=== PATIENT | female | born 1960 | race Caucasian/White ===

== ENCOUNTER 2019-10-31 08:57 | Observation (INO) ==
--- NOTE | 2019-10-21 13:57 | History & Physical Report ---
Date of Service October 21, 2019 Assessment & Plan (1) Primary osteoarthritis of right knee: Treatment options were discussed. She has failed conservative therapy as above. She would like to proceed with right total knee arthroplasty. Risks, benefits and alternatives to surgery including but not limited to infection, DVT, pain, stiffness, need for revision surgery, damage to blood vessels, damage to nerves, PE, , were discussed with the patient and they wish to proceed. Will plan on aspirin 81mg BID x 1 mo for DVT prophylaxis, will plan on HHPT post discharge from the hospital. All questions answered. COVID status is unknown, she will be tested preoperatively. History of Present Illness Chief Complaint: Right knee pain Primary Care Provider: NO PCP 59 year old female with no significant PMHx presents with long standing right knee pain. She has pain that is interfering with her daily activities. She has failed conservative measures including cortisone injections and anti- inflammatory medications. She would like to proceed with right total knee arthroplasty. Patient denies headaches, sweats, fevers, chills, double vision, blurred vision, cough, sore throat, dysphagia, chest pain, sob, wheezing, n/v/d/c, numbness, tingling, fatigue, urinary symptoms, mood disorders. ROS positive for right knee pain and stiffness. Allergies Allergy/AdvReac Type Severity Reaction Status Date / Time morphine AdvReac ITCHY Verified 10/16/19 08:19 AGITATED Home Medications Home Medications Medication Instructions Recorded Confirmed Type meloxicam 7.5 mg PO HS PRN 10/16/19 10/16/19 History Past Med/Surg History Medical History (Updated 10/21/19 @ 13:55 by Alvaro Weston) No known health problems Rheumatic fever -NO ISSUE Surgical History (Updated 10/16/19 @ 08:24 by Liudmila Quinn RN) History of colonoscopy History of hysterectomy AND 1 OVARY History of repair of rotator cuff LEFT Nausea and vomiting after administration of anesthetic agent WITH IV INSERTION-VOMITS Family History (Updated 10/16/19 @ 08:29 by Liudmila Quinn, ANDREA) Mother Family hx of colon cancer Father Family hx of colon cancer Grandmother (Paternal) Family hx of colon cancer Family/Other Family hx of colon cancer Sister No problems noted. 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 Beliefs That Will Affect Care: None Current Living Situation: Spouse Other Information That Helps Us Care for You: No Feels Safe at Home: Yes Safety Concerns: Feels Safe At This Time Smoking Status: Never smoker Do You Dip or Chew Tobacco: No ; Second Hand Exposure: No ; Hx Alcohol Use: No Hx Substance Use: No Review of Systems All systems reviewed & are unremarkable except as noted in HPI & below Physical Exam Constitutional: well developed and well nourished; no acute distress Eyes: PERRL, conjunctivae normal, anicteric sclerae ENMT: external ear and nose normal, oropharynx normal Neck: trachea midline, no thyromegaly Respiratory: normal respiratory effort, lungs clear to auscultation Cardiovascular: RRR, no murmur, no edema Musculoskeletal: Right knee: Skin is normal. No lymphadenopathy is appreciated. Mild effusion, range of motion 0-135 flexion, negative anterior drawer, negative posterior drawer, negative Juan Antonio's, knee stable to varus and valgus stress at 0 to 30 of flexion. Tender to palpation lateral joint line, positive Kiana's. Mild varus deformity Skin: no rashes, warm and dry Neurologic: patellar DTR's 2+ bilat, sensation intact Psychiatric: A+Ox3, euthymic affect Results & Data Diagnostic Findings Right knee radiographs: [id number] of the lateral compartment with tricompartmental arthritic change. Osteophyte formation off the lateral femoral condyle and lateral tibial plateau
--- NOTE | 2019-10-23 20:00 | PAT Medication Instructions ---
Medication Instructions Date of Service October 23, 2019 Home Medications meloxicam 7.5 mg PO HS PRN ASK your surgeon for instructions meloxicam 7.5 mg PO HS PRN Other Notes If you have any questions please call us at [phone] or [phone] or [phone] or [phone]
--- NOTE | 2019-10-24 11:36 | Anesthesiology Consultation ---
Date of Service October 24, 2019 Assessment & Plan (1) Encounter for pre-operative examination: Per PAT assessment on 10/23: Travel screen- Lives in [facility]. No known COVID-19 positive contacts. No current COVID-19 related symptoms. No hx of COVID-19 testing. - Patient anxious: requests deeper sedation/does not want to hear tools if possible. Chart Review Chart Review: Acceptable Risk for Surgery (pending confirmed EKG) and Patient seen in Pre Admission Testing Teaching & Discussion Pre-Anesthesia Teaching/Discussion Notes: Instructed NPO after midnight before surgery,except medications with 15 cc of water. Medication instructions provided according to the PAT guidelines. History Surgery Operation Date: 10/31/19 08:40 Proposed Procedures p Right Total Knee Arthroplasty - David Bernabe MD Height/Weight Height: 5 ft 7 in Weight: 94 kg Allergies Allergy/AdvReac Type Severity Reaction Status Date / Time morphine AdvReac PRURITIS, Verified 10/24/19 12:18 AGITATED Medications Home Medications Medication Instructions Recorded Confirmed Last Taken meloxicam 7.5 mg PO HS PRN 10/16/19 10/16/19 Unknown Past Medical History Medical History Rheumatic fever as , no known residual issues Exercise / Class Metabolic Activity II 4-5 Yardwork/Stairs/Walk up hill Past Family History Family History Mother Family hx of colon cancer Father Family hx of colon cancer Grandmother (Paternal) Family hx of colon cancer Family/Other Family hx of colon cancer Sister No problems noted. Past Surgical History Surgical History History of colonoscopy History of hysterectomy + USO History of repair of rotator cuff LEFT Past Anesthesia History No Hx of Anesthesia Complications and No Family Hx of Anesthesia Complications Patient reports N/V with IV insertion after getting queasy* History of PONV No Hx of PONV and Hx of Motion Sickness Social History Smoking Status: Never smoker Do You Dip or Chew Tobacco: No Hx Alcohol Use: No Hx Substance Use: No Review of Systems Patient denies chest pain, shortness of breath, dyspnea on exertion, fever, chills, cough, wheezing, palpitations. Physical Exam Vital Signs VITALS BP 167/95, manual recheck 132/90 (per patient, BP typically 120's/70's but nervous about upcoming surgery) P 50 TEMP 98.2 SP02 98%RA RESP 16 PHYSICAL Full neck and c-spine range of motion. Full TMJ range of motion. TMD 2.5 finger breaths (small chin) Mallampati Score 3 Dentition: intact, upper/lower braces Lungs: clear throughout to auscultation Cardiac: regular rate and rhythm, no murmurs noted Spine: normal Carotid arteries: negative bruit Extremities: no edema Testing Laboratory Results 10/24/19 12:24 10/24/19 12:24 PT 10.4 Seconds (9.0-12.0) 10/24/19 12:24 INR 1.0 (0.9-1.1) 10/24/19 12:24 APTT 26.2 Seconds (21.0-31.0) 10/24/19 12:24 Hemoglobin A1c 5.5 % (4.5-5.6) 10/24/19 12:24 Urine Color Yellow 10/24/19 Unknown Urine Appearance Clear (Clear) 10/24/19 Unknown Urine pH 7.5 (4.5-7.5) 10/24/19 Unknown Ur Specific [place] 1.010 (1.000-1.030) 10/24/19 Unknown Urine Protein Negative (Negative) 10/24/19 Unknown Urine Glucose (UA) Negative (Negative) 10/24/19 Unknown Urine Ketones Negative (Negative) 10/24/19 Unknown Urine Nitrite Negative (Negative) 10/24/19 Unknown Ur Leukocyte Esterase Negative (Negative) 10/24/19 Unknown Blood Type A Positive 10/24/19 12:24 Antibody Screen NEGATIVE 10/24/19 12:24 Electrocardiogram Date: 10/24/19 SB at 47bpm. Per visual assessment, NS TWA + isolated TWI lead III. unconfirmed report. Chest X-Ray Date: 10/24/19 No acute process within the chest. A few small bibasilar linear densities likely representing scarring or atelectasis.
[2019-10-24 13:01] LABS: Basophils # (auto) 0.04 K/uL (0-0.2); Basophils % (auto) 0.6 %; Eosinophils # (auto) 0.11 K/uL (0-0.5); Eosinophils % (auto) 1.6 %; Hematocrit (blood only) 41.5 % (37-47); Hemoglobin 13.8 g/dL (12.0-16.0); Immature Granulocytes # (auto) 0.01 K/uL (0.00-0.02); Immature Granulocytes % (auto) 0.1 %; Lymphocytes # (auto) 1.89 K/uL (1.2-3.4); Lymphocytes % (auto) 27.6 %; Mean Corpuscular Hemoglobin 30.7 pg (25-34); Mean Corpuscular Hgb Conc 33.3 g/dL (32-36); Mean Corpuscular Volume 92.2 fL (80-100); Mean Platelet Volume 10.2 fL (7.4-10.4); Monocytes # (auto) 0.51 K/uL (0.11-0.59); Monocytes % (auto) 7.5 %; Neutrophils # (auto) 4.28 K/uL (1.4-6.5); Neutrophils % (auto) 62.6 %; Platelet Count 247 K/uL (130-400); RDW Coefficient of Variation 13.2 % (11.5-14.5); RDW Standard Deviation 44.2 fL (36.4-46.3); White Blood Count 6.84 K/uL (4.8-10.8)
[2019-10-24 13:14] LABS: Appearance Urine Clear (Clear); Bilirubin Urine Negative (Negative); Blood Urine Negative (Negative); Color Urine Yellow; Glucose Urine UA Negative (Negative); Ketones Urine Negative (Negative); Leukocyte Esterase Urine Negative (Negative); Nitrite Urine Negative (Negative); Protein Urine Negative (Negative); Urobilinogen Urine Negative (Negative); pH Urine 7.5 (4.5-7.5)
[2019-10-24 13:21] LABS: Estimated Average Glucose 111 mg/dl; Hemoglobin A1C 5.5 % (4.5-5.6)
[2019-10-24 13:22] LABS: Partial Thromboplastin Ratio 0.9; Partial Thromboplastin Time 26.2 Seconds (21.0-31.0); Prothrombin Time 10.4 Seconds (9.0-12.0)
[2019-10-24 13:24] LABS: Albumin Level 3.8 gm/dl (3.4-5.0); BUN Creatinine Ratio 25.1 (10-20); Calcium 9.2 mg/dl (8.5-10.1); Creatinine Clr Calc Pharmacy 90.3 ml/min; Est GFR (African American) 96.6; Est GFR (Non-African American) 83.3; Potassium 4.6 mmol/L (3.5-5.1)
--- NOTE | 2019-10-24 13:26 | XRay Report ---
XR chest Pre-admission PA/Lat HISTORY: Preop. COMPARISON: None. FINDINGS: The heart is normal in size. No pleural effusions. No pneumothorax. A few bibasilar linear densities favor scarring or atelectasis. Otherwise, lungs are clear. IMPRESSION: 1. No acute process within the chest. 2. A few small bibasilar linear densities likely representing scarring or atelectasis. ACT 112: Negative or not required by law. Electronically signed by: Jim Amaya M.D. 10/24/2019 1:25 PM
--- NOTE | 2019-10-24 23:28 | Electrocardiogram Report ---
Test Reason : Blood Pressure : / mmHG Vent. Rate : 047 BPM Atrial Rate : 047 BPM P-R Int : 112 ms QRS Dur : 094 ms QT Int : 462 ms P-R-T Axes : 052 032 -08 degrees QTc Int : 408 ms Sinus bradycardia with short SC Otherwise normal ECG No previous ECGs available Confirmed by Shaka Lion ([id number]) on 10/24/2019 11:28:40 PM Referred By: David Bernabe Confirmed By:Shaka Lion
[~2019-10-31 08:57] MED LIST: ACETAMINOPHEN 500 MG TAB PO SCH; BUPIVACAINE 0.5 % 5 MG/1 ML PF 10ML VIAL ONE; CEFAZOLIN 2000MG 2,000 MG/15 ML SYR IV SCH; CeleBREX 200 MG CAP PO SCH; EPINEPHrine INJ 1 MG/ML AMP ONE; FAMOTIDINE 20 MG TAB PO SCH; GABAPENTIN 600 MG DOSE PO SCH; LR 500ML BOLUS, THEN 15ML/HR IV SCH; METOCLOPRAMIDE HCL 10 MG TABLET PO SCH; MISSING PHYSICIAN SIGNATURE ON ORDER SCH; OXYCODONE HCL 10 MG TABCR (OXYCONTIN) PO SCH; ROPIVACAINE 0.5% 5 MG/ML 30 ML VIAL ONE; ROPIVACAINE 0.5% HCL/PF 150 MG, BUPIVACAINE 0.5% MPF 30 ML, EPINEPHrine 30MG/30ML (OR U... INSTIL SCH; TRANEXAMIC ACID 1,000 MG **IV Intra-op IV SCH; TRANEXAMIC ACID 1,000 MG **IV Pre-op IV SCH
[2019-10-31] MEDS ORDERED: fentaNYL citrate 100 MCG/2 ML VIAL ONE (09:02)
[2019-10-31] MEDS ORDERED: LIDOCAINE HCL 2% 2 ML VIAL/AMP(20MG/ML) INFIL ONE (09:02)
[2019-10-31] MEDS ORDERED: PROPOFOL IV EMULSION 10 MG/ML 20 ML VIAL IV ONE ×3 (09:02→13:10)
[2019-10-31] MEDS ORDERED: MIDAZOLAM HCL 1 MG/ML 2ML VIAL ONE (09:02)
[2019-10-31] MEDS ORDERED: ACETAMINOPHEN 500 MG TAB ONE (09:11)
[2019-10-31] MEDS ORDERED: CEFAZOLIN 2,000 MG/15 ML IV PUSH IV ONE (09:12)
[2019-10-31] MEDS ORDERED: FAMOTIDINE 20 MG TAB ONE (09:13)
[2019-10-31] MEDS ORDERED: CeleBREX 200 MG CAP ONE (09:13)
[2019-10-31] MEDS ORDERED: METOCLOPRAMIDE HCL 10 MG TABLET ONE (09:14)
[2019-10-31] MEDS ORDERED: GABAPENTIN 300 MG CAP ONE (09:14)
[2019-10-31] MEDS ORDERED: OXYCODONE HCL 10 MG TABCR (OXYCONTIN) ONE (09:15)
[2019-10-31] MEDS ORDERED: TRANEXAMIC ACID / 0.7% NACL 1000MG/100ML BAG IV ONE (09:16)
--- NOTE | 2019-10-31 10:09 | History & Physical Bridge Note ---
Date of Service October 31, 2019 History & Physical Bridge Note I have examined the patient, reviewed the History & Physical and in the interval since the performance of the History & Physical I have noted the following changes of clinical significance: no changes noted
[2019-10-31] MEDS ORDERED: ONDANSETRON INJ 2 MG/ML 2 ML VIAL ONE (11:15)
[2019-10-31] MEDS ORDERED: BACITRACIN INJ 50,000 UNIT VIAL ONE (11:25)
--- NOTE | 2019-10-31 13:25 | Operative Report ---
Post Operative Report Pre & Post Diagnosis Operation Date: 10/31/19 11:20 Pre-Op Diagnosis: RIGHT KNEE OSTEOARTHRITIS Post-Op Diagnosis: RIGHT KNEE OSTEOARTHRITIS I identified the patient and participated in the time-out.: Yes Procedure Operation Date: 10/31/19 11:20 Actual Procedures p Right Total Knee Arthroplasty(Right) - David Bernabe MD Surgeon David Bernabe MD Metal Control Coordinator Junaid Haines PA-C Estimated Blood Loss 20 Findings Consistent with Post-Op Diagnosis Specimens Bone and tissue Drains None Anesthesia Type MAC Spinal Regional Complications none Disposition Accompanied Patient To Recovery: No Disposition: Recovery Room Indications The patient is a 59-year-old female longstanding pain in the right knee. She is [id number] lateral compartment. She is failed conservative measures including injection, anti-inflammatories, rehab. She was to proceed with a right total knee arthroplasty. Description of Procedure Risks benefits and alternatives of surgery including but not limited to infection, DVT, pain, stiffness, need for surgery, damage to blood vessels, damage to nerves or risks of anesthesia were discussed with the patient and they wished to proceed. The patient was identified and the laterality was confirmed and marked. They received a preoperative antibiotic as well as a spinal anesthetic and an abductor canal block. A well-padded tourniquet was applied and then the limb was prepped and draped in standard manner with ChloraPrep. The limb was exsanguinated and the tourniquet was inflated. I made a standard anterior incision. I sharply incised the skin then utilized Bovie electrocautery to achieve hemostasis. I made a medial parapatellar arthrotomy and mobilized the patella laterally. I then excised the anterior horns of the medial and lateral meniscus as well as the infrapatellar fat pad. I elevated a portion of the MCL off of the tibia. I then pinned into place a patient-matched distal femoral cutting guide and made my distal femoral resection. I then pinned into place the 5 in 1 femoral cutting guide. I made my anterior, posterior and chamfer cuts. I then excised the cruciates and the remaining portions of the menisci. I then pinned into place a patient- matched tibial cutting guide and made my tibial resection. I then pinned into place the tibial plate a utilizing alignment tyler to confirm rotation. I then cut for the post. Utilizing a lamina patient access specialist and I then removed posterior osteophytes off the femur. I then placed a trial femur into position and cut for the trochlear component. I then sequentially trialed to size the polyethylene until there was good soft tissue balancing and range of motion. I then prepared the patella with a freehand cut utilizing sagittal saw. I sized and drilled for the patella. There was some lateral tracking of the patella. A lateral release was required. All the trial components were removed. The deep tissues were anesthetized with an ortho mix solution. Then with Simplex HV with gentamicin cement, I cemented my definitive components. Definitive components, Mcnair and Nephew Journey 2: Femur 5 Tibia 5 Poly 12 Patella 32 oval A betadine soak was performed. The arthrotomy was closed with interrupted #1 Vicryl suture subcutaneous tissue was closed with interrupted 2-0 Vicryl suture. The skin was closed with with luis. An Acticoat and Natan dressing were placed. Sterile dressings were applied. All needle and sponge counts were correct at the end of the procedure patient was transferred to the PACU in stable condition without apparent complication. The PA-C was necessary for assistance with procedure for assistance in positioning, prepping, draping, retraction and closure. I attest to the content of the Intraoperative Record and any orders documented therein. Any exceptions are noted below.
[2019-10-31] MEDS ORDERED: ePHEDrine sulfate 50 MG/ML AMP IV PRN (13:53)
[2019-10-31] MEDS ORDERED: ATROPINE SULFATE 0.1 MG/ML 10ML SYR IV PRN (13:53)
[2019-10-31] MEDS ORDERED: MEPERIDINE HCL 25 MG/ML CARP/VIAL IV PRN (13:53)
[2019-10-31] MEDS ORDERED: fentaNYL citrate 100 MCG/2 ML VIAL IV PRN (13:53)
[2019-10-31] MEDS ORDERED: LABETALOL HCL IV 5 MG/ML 20ML IV PRN (13:53)
[2019-10-31] MEDS ORDERED: PHENYLEPHRINE 100MCG/ML 5ML SYR IV PRN (13:53)
[2019-10-31] MEDS ORDERED: ONDANSETRON INJ 2 MG/ML 2 ML VIAL IV PRN ×2 (13:53→15:39)
--- NOTE | 2019-10-31 14:09 | XRay Report ---
XR knee RT 1 or 2V routine CLINICAL HISTORY: Surgical Post Op COMPARISON: None. DISCUSSION: Anatomic alignment posttotal right knee arthroplasty. Could contact between prosthetic an d underlying bone. Expected postoperative soft tissue change. IMPRESSION: Anatomic alignment posttotal right knee arthroplasty. ACT 112: Negative or not required by law. The above report was generated using voice recognition software. It may contain grammatical, syntax or spelling errors. Electronically signed by: Brian Patricia M.D. 10/31/2019 2:08 PM
--- NOTE | 2019-10-31 14:32 | Anesthesiology Progress Note ---
Date of Service October 31, 2019 Anesthesia Post Procedure Vital Signs Vital Signs: Temp Pulse Pulse Resp BP BP Pulse Ox 10/31/19 14:25 48 L 12 114/63 98 10/31/19 14:15 50 L 12 105/60 99 10/31/19 14:05 59 L 16 114/53 L 100 10/31/19 13:55 58 L 14 115/57 L 100 10/31/19 13:49 36.3 C L 64 16 115/64 97 10/31/19 10:15 60 20 155/89 H 98 10/31/19 09:30 36.7 C 68 18 147/100 H 97 Pain Intensity Right Knee: Pain Intensity: 4 Transfer of Care Handoff Completed per policy Notes Mental Status: alert / awake / arousable Patient Amnestic to Procedure: Yes Nausea / Vomiting: adequately controlled Pain: adequately controlled Airway Patency, RR, SpO2: stable & adequate BP & HR: stable & adequate Hydration State: stable & adequate Neuraxial Anesthesia: was administered and sensory block is resolving Anesthetic Complications: no major complications apparent and Pt Satisfied with anesthetic care
[2019-10-31] MEDS ORDERED: bisacodyL 10 MG SUPP PR PRN (15:39)
[2019-10-31] MEDS ORDERED: MAGNESIUM HYDROXIDE SUSP 30 ML UDC PO PRN (15:39)
[2019-10-31] MEDS ORDERED: NALOXONE HCL 0.4 MG/1 ML VIAL/CARP IV PRN (15:39)
[2019-10-31] MEDS ORDERED: SODIUM CHLORIDE 0.9% 1000ML 1,000 ML IV SCH (15:39)
[2019-10-31] MEDS: ACETAMINOPHEN 500 MG TAB PO SCH ×2 (17:00→22:01)
[2019-10-31] MEDS: FERROUS GLUCONATE 324 MG TAB PO SCH (17:00)
[2019-10-31] MEDS: CEFAZOLIN 2000MG 2,000 MG/15 ML SYR IV SCH (21:00)
[2019-10-31] MEDS ORDERED: SENNA 8.6 MG TAB PO SCH (21:00)
[2019-10-31] MEDS: DOCUSATE SODIUM 100 MG CAP PO SCH (21:01)
[2019-10-31] MEDS: ASPIRIN 81 MG ECTAB PO SCH (21:01)
[2019-11-01] MEDS: CEFAZOLIN 2000MG 2,000 MG/15 ML SYR IV SCH (04:43)
[2019-11-01] MEDS: ACETAMINOPHEN 500 MG TAB PO SCH (04:43)
[2019-11-01 05:57] LABS: Hematocrit (blood only) 36.5 % (37-47); Hemoglobin 12.3 g/dL (12.0-16.0); Mean Corpuscular Hemoglobin 30.9 pg (25-34); Mean Corpuscular Hgb Conc 33.7 g/dL (32-36); Mean Corpuscular Volume 91.7 fL (80-100); Mean Platelet Volume 10.2 fL (7.4-10.4); Platelet Count 228 K/uL (130-400); RDW Coefficient of Variation 12.9 % (11.5-14.5); RDW Standard Deviation 43.6 fL (36.4-46.3); Red Blood Count 3.98 M/uL (4.2-5.4); White Blood Count 12.49 K/uL (4.8-10.8)
[2019-11-01 06:28] LABS: BUN Creatinine Ratio 21.1 (10-20); Calcium 8.8 mg/dl (8.5-10.1); Creatinine Clr Calc Pharmacy 76.3 ml/min; Est GFR (African American) 78.9; Est GFR (Non-African American) 68.1; Potassium 4.6 mmol/L (3.5-5.1)
--- NOTE | 2019-11-01 07:42 | Orthopedic Progress Note ---
Date of Service November 01, 2019 Assessment & Plan (1) Primary osteoarthritis of right knee: POD#1 Right TKA Patient is feeling well this morning. She will have PT/OT this morning. Planning on OPPT upon discharge. Labs look good this morning, hemoglobin at 12.3 down from 13.8 preop. DVT prophylaxis-[id number] BID, SCDs, TEDs. Will plan on discharge home later today if PT goes well. Admission and Anticipated Discharge Date Admission Date: October 31, 2019 Subjective Patient seen resting in bed, alert and oriented. She is doing well with minimal pain. Denies chest pain, sob, dizziness, light headedness. Review of Systems Review of Systems: All systems reviewed & are unremarkable except as noted in HPI & below Physical Exam Physical Exam: Right knee dressing is c/d/i, toes mobile, good dorsiflexion. No calf tenderness. Distally n/v status intact. Constitutional: well developed and well nourished; no acute distress Results & Data ([facility]) Vital Signs (Past 12 Hours) Vital Signs Temp Pulse Resp BP Pulse Ox 11/01/19 07:02 36.4 C L 55 L 16 178/82 H 95 11/01/19 03:00 36.7 C 71 18 143/76 H 95 10/31/19 23:06 37.1 C 73 16 119/70 93 Laboratory Results H & H 10/24/19 11/01/19 Range/Units 12:24 05:30 Hgb 13.8 12.3 (12.0-16.0) g/dL Hct 41.5 36.5 L (37-47) % Coagulation 10/24/19 Range/Units 12:24 INR 1.0 (0.9-1.1)
[2019-11-01] MEDS: ASPIRIN 81 MG ECTAB PO SCH (08:47)
[2019-11-01] MEDS: DOCUSATE SODIUM 100 MG CAP PO SCH (08:48)
[2019-11-01] MEDS: FERROUS GLUCONATE 324 MG TAB PO SCH (08:48)
[2019-11-01] MEDS: OXYCODONE HCL IR 5 MG TAB (IMMEDIATE RELEASE) PO PRN ×2 (08:48→12:35)
[2019-11-01] MEDS ORDERED: MULTIVITAMIN TAB PO SCH (09:00)
--- NOTE | 2019-11-04 14:59 | Discharge Summary ---
Date of Service November 04, 2019 Admission HPI Per Admitting Provider 59 year old female with no significant PMHx presents with long standing right knee pain. She has pain that is interfering with her daily activities. She has failed conservative measures including cortisone injections and anti- inflammatory medications. She would like to proceed with right total knee arthroplasty. Patient denies headaches, sweats, fevers, chills, double vision, blurred vision, cough, sore throat, dysphagia, chest pain, sob, wheezing, n/v/d/c, numbness, tingling, fatigue, urinary symptoms, mood disorders. ROS positive for right knee pain and stiffness. Admission Exam Per Admitting Provider Physical Exam Constitutional: well developed and well nourished; no acute distress Eyes: PERRL, conjunctivae normal, anicteric sclerae ENMT: external ear and nose normal, oropharynx normal Neck: trachea midline, no thyromegaly Respiratory: normal respiratory effort, lungs clear to auscultation Cardiovascular: RRR, no murmur, no edema Musculoskeletal: Right knee: Skin is normal. No lymphadenopathy is appreciated. Mild effusion, range of motion 0-135 flexion, negative anterior drawer, negative posterior drawer, negative Juan Antonio's, knee stable to varus and valgus stress at 0 to 30 of flexion. Tender to palpation lateral joint line, positive Kiana's. Mild varus deformity Skin: no rashes, warm and dry Neurologic: patellar DTR's 2+ bilat, sensation intact Psychiatric: A+Ox3, euthymic affect Principal Diagnosis Right knee Djd Discharge Exam Subjective Patient seen resting in bed, alert and oriented. She is doing well with minimal pain. Denies chest pain, sob, dizziness, light headedness. Review of Systems Review of Systems: All systems reviewed & are unremarkable except as noted in HPI & below Physical Exam Physical Exam: Right knee dressing is c/d/i, toes mobile, good dorsiflexion. No calf tenderness. Distally n/v status intact. Constitutional: well developed and well nourished; no acute distress Discharge Data Allergies Allergy/AdvReac Type Severity Reaction Status Date / Time morphine AdvReac PRURITIS, Verified 10/31/19 09:24 AGITATED Consultations 10/31/19 15:39 Consult Case Management - Discharge Planning Routine Procedures Performed Operation Date: 10/31/19 11:20 Actual Procedures p Right Total Knee Arthroplasty(Right) - David Bernabe MD Ordered Studies 10/31/19 05:00 US - OR guided needle placemen Routine Hospital Course (1) Primary osteoarthritis of right knee: The patient was admitted on the above noted date and had the above noted surgery performed of which she tolerated well. On her first post operative day, she was feeling well. She was having mild discomfort with her knee. Denied SOB,CP,LH. Dressings were C/D/I. Calves were soft,NT. NV intact. She was started on PT/OT protocols and continued on DVT prophylaxis and pain management. Hgb was 12.3. She progressed well with her PT. VSS remained stable with fluctuations with her SBP. She was remaining stable and it was felt she could be discharged to home. Total Time Total Time Spent Total Time Spent (In Minutes): 5 Discharge Plan Discharge Items Patient Disposition: Home - Self-Care Reason For Visit: RIGHT KNEE OSTEOARTHRITIS Discharge Diagnosis: Right knee osteoarthritis Activity: Per Instructions section Non-emergency contact: Surgeon Call non-emergency contact if: you have any medication questions, your pain is not controlled, your pain is worsening, your pain is concerning for you, you have a fever, your temperature is above 101, your wound has increased redness, your wound has increased drainage and your wound pain has increased Follow-up/Referrals: Arabella Jay DO [Primary Care Provider] - Diet: Regular Addtl Attending Provider Instructions: ACTIVITY RECOMMENDATIONS: SELF CARE INSTRUCTIONS AFTER TOTAL KNEE REPLACEMENT A. You may need to continue a physical therapy program after discharge from the hospital. There are several options available to you. Your doctor will assist you in selecting the best one for you. 1. An out-patient facility 2 to 3 times a week for therapy or home therapy. 2. Continue working on all exercises taught to you in the hospital. Your goals should be to increase bending of your knee to 90 degrees and beyond and to fully straighten your knee. B. You may progress at your own pace from walking with a walker or crutches to a cane; then to no assistive devices. C. Make walking a part of your daily routine. Be up as much as comfortable with rest periods throughout the day. Rest with leg elevation is very important. Use the ice wrap frequently for the first 3-4 weeks. D. There are no restrictions on activities. You may ride in a car, shop, participate in automotive glass specialist and all social activities. E. Wear the long elastic stockings (JOHN hose) 20 hours a day for 2 weeks after surgery. They can be removed several times a day for laundering and for a bath. F. You may shower, no tub baths until cleared by your doctor. SPECIAL CARE INSTRUCTIONS: VERY IMPORTANT TO READ AND REVIEW A. There are a few signs you need to watch for after you are home. Call [facility] if you notice any of the followin. Increased severe knee pain. Some pain is expected especially when you exercise. 2. Increased swelling in your leg or knee; pain or swelling of the calf muscle in either lower leg. 3. Any fluid drainage from the incision. 4. Shortness of breath or chest pain. B. Please call [facility] at if you have any concerns or questions about your operation or recovery. The doctor or his nurse will return your call promptly. C. You must take antibiotics before dental work, bladder, bowel or other surgery. Your doctor will provide you with a permanent care to carry describing this precaution. IMPORTANT: * REMEMBER TO TAKE ASPIRIN, 81 MG, TWICE DAILY FOR 4 WEEKS UNLESS OTHERWISE DIRECTED. THIS IS YOUR BLOOD THINNER. * HIGH RISK PATIENTS MAY BE PRESCRIBED A STRONGER BLOOD THINNER. THIS WILL BE PROVIDED AT DISCHARGE. * CALL IF INCREASED PAIN, REDNESS, DRAINAGE OR FEVER GREATER THAT 101. * WEAR JOHN HOSE 20 HOURS PER DAY FOR 2 WEEKS. This is a large suction dressing covering your incision. This will help pull any excess drainage from the wound and allow your incision to heal properly. You may shower with this if you can keep the unit outside of the shower. If any bleeding or leakage is noted please call your doctor's office. This will remain on your incision for 7 days and then should be removed. This can be done yourself or by the home nursing staff if applicable. The entire unit is disposable once removed. Once removed, keep incision clean and dry. If redness or drainage is noted, please call your surgeon. FOLLOW UP VISIT: If appointment is not already scheduled: Please call [facility] to make a follow-up appointment for 2 weeks after your surgery at . Stand-Alone Forms: My [facility], Opioid Pain Management, Smoking Cessation Medications and DC Order Prescriptions: New aspirin 81 mg Tablet,Delayed Release (Dr/Ec) 81 mg PO BID Qty: 60 RF: 0 acetaminophen 500 mg Tablet 1,000 mg PO Q8 Qty: 60 RF: 0 oxycodone 5 mg Tablet 5 - 10 mg PO .Q4H-6H MDD 6 PRN (Reason: pain) Qty: 30 RF: 0 celecoxib [Celebrex] 200 mg capsule 200 mg PO BID Qty: 60 RF: 0 Discontinued meloxicam 7.5 mg Tablet 7.5 mg PO HS PRN (Reason: Pain) RF: 0 Discharge Orders: Discharge Order (Routine); Ordered 11/01/19 Ordered By: Alvaro Beltran/Other Patient Handouts: DVT Post Op Prevention Admission Data Admit Date/Time: 10/31/19 13:55 Attending Provider: David Bernabe Admit Provider: David Bernabe Primary Care Provider: Arabella Jay Other Interventions: Discharge Summary Assessment (RN) Last Done: 11/01/19 08:52 DC Date/Time DO NOT enter until pt leaves facility: 11/01/19 13:42
== END 2019-11-01 13:42 | disposition home or self-care (01) ==
LOC: ASU 08:57 → 3E 13:55 → INTOOBSV 13:55

== ENCOUNTER 2023-03-01 07:59 | Observation (INO) ==
--- NOTE | 2023-02-06 14:26 | PAT Medication Instructions ---
Medication Instructions Date of Service February 06, 2023 Home Medications meloxicam 15 mg tablet 15 mg PO QAM ASK your surgeon for instructions meloxicam 15 mg tablet 15 mg PO QAM Other Notes NOTHING TO EAT OR DRINK AFTER MIDNIGHT. If you have any questions please call us at [phone] or [phone] or [phone] or [phone]
--- NOTE | 2023-02-10 13:15 | Anesthesiology Consultation ---
Date of Service February 10, 2023 Assessment & Plan (1) Encounter for pre-operative examination: - Infectious disease screening: Per assessment on 02/10/23: No known infectious disease contacts or current infectious disease symptoms. No noted Covid positive test result in past 90 days. - Outpatient joint assessment: Pt currently scheduled for inpatient pathway. If surgeon requests review for outpatient joint pathway, patient is an acceptable candidate for outpatient joint program from anesthesia standpoint pending surgeon's office assessment that patient is motivated, has good support and completes Same Day Joint Program preop requirements. - S/P Right TKA (10/31/19): SAB at L3/4 x1 attempt + PNB at [facility] Chart Review Chart Review: Acceptable Risk for Surgery and Patient seen in Pre Admission Testing Teaching & Discussion Pre-Anesthesia Teaching/Discussion Notes: Instructed NPO after midnight before surgery,except medications with 15 cc of water. Medication instructions provided according to the PAT guidelines. History Surgery Operation Date: 03/01/23 10:05 Proposed Procedures p Left Total Knee Arthroplasty - Isaac Haji MD Height/Weight Height: 5 ft 7 in Weight: 97.7 kg Allergies Allergy/AdvReac Type Severity Reaction Status Date / Time morphine AdvReac Intermediate Pruritus, Verified 02/09/23 11:13 agitation Medications Home Medications Medication Instructions Recorded Confirmed Last Taken meloxicam 15 mg tablet 15 mg PO QAM 02/03/23 02/03/23 Unknown Past Medical History Medical History Arthritis Obesity Rheumatic fever As infant, no known residual issues Exercise / Class Metabolic Activity II 4-5 Yardwork/Stairs/Walk up hill (one FS (no CP, no SOB)) Past Family History Family History Mother Family hx of colon cancer Father Family hx of colon cancer Grandmother (Paternal) Family hx of colon cancer Family/Other Family hx of colon cancer Sister No problems noted. Past Surgical History Surgical History History of colonoscopy History of dilatation and curettage History of hysterectomy + USO History of repair of rotator cuff left History of total knee replacement Right TKA (10/31/19): SAB at L3/4 x1 attempt + PNB at [facility] + second repair Hx of oral surgery has wire to bottom teeth to keep from shifting Nausea and vomiting after administration of anesthetic agent [place] teeth extracted Past Anesthesia History No Hx of Anesthesia Complications and No Family Hx of Anesthesia Complications History of PONV History of PONV and Hx of Motion Sickness (Situational) Social History Smoking Status: Never smoker Do You Dip or Chew Tobacco: No Hx Alcohol Use: No Hx Substance Use: No substance use type: does not use Review of Systems Patient denies chest pain, shortness of breath, dyspnea on exertion, fever, chills, cough, wheezing, palpitations. Physical Exam Vital Signs VITALS BP 162/88 P 60 TEMP 98.2 SP02 97%RA RESP 16 PHYSICAL Full cervical extension range of motion. Full TMJ range of motion. TMD 3 finger breaths Mallampati Score 3 Dentition: lower front permanent wire, + cap (right upper side) Lungs: clear throughout to auscultation Cardiac: regular rate and rhythm, no murmurs noted Spine: normal Carotid arteries: negative bruit Extremities: no LE edema Lab Results Anesthesia Preop Results Results Anesthesia Widget: WBC 7.44 K/ul (4.8-10.8) 02/10/23 Hgb 13.8 g/dl (12.0-16.0) 02/10/23 Hct 41.5 % (37.0-47.0) 02/10/23 Plt 263 K/uL (130-400) 02/10/23 Na 141 mmol/L (136-145) 02/10/23 K 4.7 mmol/L (3.5-5.1) 02/10/23 Cl 106 mmol/L (98-107) 02/10/23 CO2 29 mmol/L (21-32) 02/10/23 BUN 24 mg/dl (6-23) H 02/10/23 Creat 1.22 mg/dl (0.6-1.2) H 02/10/23 Glucose Level 90 mg/dl (70-99(Fasting)) 02/10/23 PT 10.3 Seconds (9.0-12.0) 02/10/23 PTT 26.3 Seconds (21.0-31.0) 02/10/23 INR 0.9 (0.9-1.1) 02/10/23 Urine Color Yellow 02/10/23 Urine Appearance Clear (Clear) 02/10/23 Urine pH 7.0 (4.5-7.5) 02/10/23 Urine Specific [place] 1.025 (1.000-1.030) 02/10/23 Urine Protein Negative (Negative) 02/10/23 Urine Glucose (UA) Negative (Negative) 02/10/23 Urine Ketones Trace (Negative) H 02/10/23 Urine Blood Negative (Negative) 02/10/23 Urine Nitrite Negative (Negative) 02/10/23 Urine Bilirubin Negative (Negative) 02/10/23 Urine Urobilinogen Negative (Negative) 02/10/23 Urine Leukocyte Esterase Negative (Negative) 02/10/23 Blood Type A Positive 02/10/23 Antibody Screen NEGATIVE 02/10/23 Testing Electrocardiogram Date: 02/10/23 SB at 58bpm. "Otherwise normal ECG" Chest X-Ray Date: 02/10/23 FINDINGS: No pneumothorax. No pleural effusions. There are few bibasilar linear densities likely representing scarring or subsegmental atelectasis. This is similar to the prior study. No new focal lung consolidations to suggest a pneumo ivonne. No evidence for pulmonary edema. The cardiac silhouette is normal in size. IMPRESSION: No significant change compared to the prior study. No acute process.
--- NOTE | 2023-02-28 08:40 | History & Physical Report ---
Date of Service February 28, 2023 Assessment & Plan (1) Primary osteoarthritis of left knee: Plan: Treatment options discussed with the patient. They have failed conservative measures and would like to proceed with surgical invention. Risks, benefits and alternatives to surgery including but not limited to infection, DVT, pain, stiffness, need for revision surgery, damage to blood vessels, damage to nerves, PE, , were discussed with the patient and they wish to proceed. Plan on left total knee arthroplasty scheduled for March 01 at [facility] with Dr. Haji. Plan on aspirin 81 mg twice daily for 1 month postop for DVT prophylaxis. Plan on outpatient therapy. All questions answered. Patient will follow-up postoperatively. History of Present Illness Chief Complaint: Left knee pain Primary Care Provider: Arabella Jay DO 62-year-old female with no significant past medical history who presents with ongoing left knee pain. Pain is interfering with her daily activities. She has failed conservative measures and would like to proceed with surgical intervention. Patient denies headaches, sweats, fevers, chills, double vision, blurred vision, cough, sore throat, dysphagia, chest pain, sob, wheezing, n/v/d/c, numbness, tingling, fatigue, urinary symptoms, mood disorders. ROS positive for left knee pain and stiffness. Allergies Allergy/AdvReac Type Severity Reaction Status Date / Time morphine AdvReac Intermediate Pruritus, Verified 02/09/23 11:13 agitation Home Medications Medication Instructions Recorded Confirmed Type meloxicam 15 mg tablet 15 mg PO QAM 02/03/23 02/03/23 History Past Med/Surg History Medical History Arthritis Obesity Rheumatic fever As , no known residual issues Surgical History History of colonoscopy History of dilatation and curettage History of hysterectomy + USO History of repair of rotator cuff left History of total knee replacement Right TKA (10/31/19): SAB at L3/4 x1 attempt + PNB at [facility] + second repair Hx of oral surgery has wire to bottom teeth to keep from shifting Nausea and vomiting after administration of anesthetic agent [place] teeth extracted Family History Mother Family hx of colon cancer Father Family hx of colon cancer Grandmother (Paternal) Family hx of colon cancer Family/Other Family hx of colon cancer Sister No problems noted. Social History Smoking Status: Never smoker Second Hand Exposure: No; Do You Dip or Chew Tobacco: No; Hx Alcohol Use: No Hx Substance Use: No Preferred Language: Lao Communication Ability: Effective Activity Therapy Teacher Required: No Beliefs That Will Affect Care: None marital status: Current Living Situation: Spouse Feels Safe at Home: Yes Assistive Devices: Contacts Review of Systems All systems reviewed & are unremarkable except as noted in HPI & below Physical Exam Constitutional: well developed and well nourished; no acute distress Eyes: PERRL, conjunctivae normal, anicteric sclerae ENMT: external ear and nose normal, oropharynx normal Neck: trachea midline, no thyromegaly Respiratory: normal respiratory effort, lungs clear to auscultation Cardiovascular: RRR, no murmur, no edema Musculoskeletal: Left knee: Valgus alignment. Tenderness lateral joint line. Mild swelling. Positive Kiana's. Stable to valgus and varus stress test. Range of motion 10 to 100 degrees. Skin: no rashes, warm and dry Neurologic: patellar DTR's 2+ bilat, sensation intact Psychiatric: A+Ox3, euthymic affect Results & Data Diagnostic Findings Left knee radiographs demonstrate tricompartmental arthritic changes with valgus alignment. Patient has [id number] lateral compartment. She has periarticular osteophytes and subchondral sclerosis.
[~2023-03-01 07:59] MED LIST changes: -CEFAZOLIN 2000MG 2,000 MG/15 ML SYR IV SCH; -EPINEPHrine INJ 1 MG/ML AMP ONE; +LR 15ML/HR IV SCH; -LR 500ML BOLUS, THEN 15ML/HR IV SCH; +LR 60ML/HR IV SCH; -MISSING PHYSICIAN SIGNATURE ON ORDER SCH; -OXYCODONE HCL 10 MG TABCR (OXYCONTIN) PO SCH; -ROPIVACAINE 0.5% HCL/PF 150 MG, BUPIVACAINE 0.5% MPF 30 ML, EPINEPHrine 30MG/30ML (OR U... INSTIL SCH; +ROPIVACAINE 0.5% HCL/PF 150 MG, BUPIVACAINE 0.75% MPF 20 ML, EPINEPHrine 30MG/30ML (OR ... INSTIL SCH; +ceFAZolin 2000MG 2,000 MG/15 ML SYR IV SCH; +dexAMETHasone 4 MG TAB PO SCH
[2023-03-01] MEDS ORDERED: HYDROmorphone INJ 2 MG/ML SYR/VIAL IV PRN (09:13)
[2023-03-01] MEDS ORDERED: ONDANSETRON INJ 2 MG/ML 2 ML VIAL IV PRN ×2 (09:13→16:14)
[2023-03-01] MEDS ORDERED: ePHEDrine sulfate 50 MG/ML AMP IV PRN (09:13)
[2023-03-01] MEDS ORDERED: PROMETHAZINE HCL 12.5 MG in SODIUM CHLORIDE 0.9% 50 ML IV PRN (09:13)
[2023-03-01] MEDS ORDERED: ATROPINE SULFATE 0.1 MG/ML 10ML SYR IV PRN (09:13)
[2023-03-01] MEDS ORDERED: fentaNYL citrate PF 100 MCG/2 ML VIAL IV PRN (09:13)
[2023-03-01] MEDS ORDERED: PROPOFOL IV EMULSION 10 MG/ML 20 ML VIAL IV ONE (09:32)
[2023-03-01] MEDS ORDERED: fentaNYL citrate PF 100 MCG/2 ML VIAL ONE (09:32)
[2023-03-01] MEDS ORDERED: LIDOCAINE 2% 2 ML VIAL/AMP(20MG/ML) INFIL ONE (09:32)
[2023-03-01] MEDS ORDERED: ONDANSETRON INJ 2 MG/ML 2 ML VIAL ONE (09:32)
[2023-03-01] MEDS ORDERED: MIDAZOLAM HCL 1 MG/ML 2ML VIAL ONE ×2 (09:32→10:02)
--- NOTE | 2023-03-01 10:24 | History & Physical Bridge Note ---
Date of Service March 01, 2023 History & Physical Bridge Note I have examined the patient, reviewed the History & Physical and in the interval since the performance of the History & Physical I have noted the following changes of clinical significance: no changes noted
[2023-03-01] MEDS ORDERED: ORTHO JOINT ANESTHETIC ONE (10:31)
--- NOTE | 2023-03-01 13:19 | Operative Report ---
Post Operative Report Pre & Post Diagnosis Operation Date: 03/01/23 09:45 Pre-Op Diagnosis: Left knee osteoarthritis. Post-Op Diagnosis: Left knee osteoarthritis. I identified the patient and participated in the time-out.: Yes Procedure Operation Date: 03/01/23 09:45 Actual Procedures p Left Total Knee Arthroplasty(Left), Lateral release, natan and Acticoat superficial wound VAC application - Isaac Haji MD Surgeon Isaac Haji MD Linoleum Layer Helper Alvaor MOSER Estimated Blood Loss 5 Findings Consistent with Post-Op Diagnosis Specimens bone cuts Drains 2 Hemovac Anesthesia Type MAC Spinal Regional Complications none Disposition Disposition: Recovery Room Indications 62-year-old female with chronic lateral compartment osteoarthritis left knee failed conservative management. Patient has 9 degree valgus knee with [id number] lateral compartment with flexion contracture. Previous successful right knee replacement. Description of Procedure The patient was taken to the operating room and anesthetized under Spinal MAC regional block anesthesia. Patient was placed supine on the the operating table. A pneumatic tourniquet was placed about the Left upper thigh. The knee exam demonstrated Valgus knee with a 15 degree flexion contracture and flexion to about 120 degrees. There was no pseudolaxity in a tight lateral compartment and some laxity of the MCL with valgus stress. The involved leg was elevated exsanguinated with Esmarch bandage and the pneumatic tourniquet was raised to 325 millimeters mercury. A longitudinal incision was made across the anterior knee. Skin flaps were elevated. An incision was made into the medial retinaculum and extended up into the mid third of the quadriceps tendon and extended down to the tibial tubercle. Intra-articular findings demonstrated tricompartmental osteoarthritis with grade 3 medial compartment OA with circumferential patellar osteophytes with grade 4 lateral compartment OA with some lateral bone loss. The knee was exposed by excising cruciate ligaments and menisci. The infrapatellar fat pad was resected. The fat pad over the anterior femur at the upper aspect of the articular surface was resected for placement of the component in that area. A subperiosteal peel lateral release was performed around the patella. The [employer] Nephew Movie[employer]aney 2.0 total knee arthroplasty system was utilized for the procedure. The custom femoral cutting guide was pinned in position. The distal femoral cut was made. The size 5, 5 in 1 cutting block was placed. The anterior posterior and chamfer cuts were made. The knee was extended and a free hand cut technique was performed to the patella. The patella width was measured and the width was reproduced using a 32 symmetrical patella component. 3 drill holes are made for the patella component pegs. The tibia was then subluxed. The custom tibial cutting block was pinned in position and the proximal tibial cut was made with the oscillating saw. Flexion and extension gaps were assessed. It appeared that the cutting guide places in slight varus cut and there was a tight lateral space in extension and flexion so I revised the tibial cut with extra tibial cutting guide making a perpendicular cut to the long axis of the tibia at the appropriate posterior slope. Did do a subperiosteal release of the IT band on the lateral side of the tibia and posterior capsule release along the tibia. This balanced the gaps in extension and flexion. The size 5 tibial trial was externally rotated in line with the tibial tubercle and pinned in position. The punch for the stem was used. The femoral trial was inserted and centered the notch cutting devices were used and the collet was placed. Tibial trials were used for the insert. The size 12 posterior stabilized trial gave balanced ligaments through full range of motion. Patella tracking was assessed with range of motion. The patella tracked with some lateral tilt and lift off so I did a lateral release leaving as much of the synovium intact as possible. Tracking was reassessed and now tracks centrally without tilt. The trials were removed. The Orthomix anesthetic cocktail was injected per protocol. The cut bone surfaces and soft tissue were copiously irrigated with pulsatile lavage saline solution. The final components were cemented with Refobacin cement. The final components were Mcnair [employer] Nephew journey 2.0 size 5 left posterior stabilized femoral component, size 5 left tibial component with a 13 mm left posterior stabilized polyethylene insert with a 32 mm symmetrical polyethylene patella. After the cement cured, the Betadine soak was used for 3 minutes. The knee was then copiously irrigated with pulsat ile lavage saline solution. 2 drains were brought out laterally connected to Hemovac. The quadriceps tendon and medial retinaculum were closed with interrupted [id number] #1 Vicryl sutures. The knee was taken through full range of motion and repair was secure. Knee range of motion was 0 through 130 degrees .the subcutaneous tissues were closed with 2-0 Vicryl sutures. The skin was closed with Meliton. A Natan and Acticoat superficial wound VAC was applied. The tourniquet was let down and the patient had good capillary refill to the extremity. The patient tolerated the procedure well. My physician food and beverage assistant manager Alvaro MOSER ,participated as certified first assistant and was integral part in all aspects of the procedure including prepping, draping, leg positioning, soft tissue retraction, instrument management and assisted in the closure and superficial wound VAC application and will participate in postoperative care the patient. I attest to the content of the Intraoperative Record and any orders documented therein. Any exceptions are noted below.
--- NOTE | 2023-03-01 14:19 | XRay Report ---
TWO VIEWS LEFT KNEE CLINICAL HISTORY: Postoperative examination. FINDINGS: AP and crosstable lateral portable views of the left knee are obtained. A left knee arthrop lasty is in near anatomic alignment. There has been undersurface remodeling of the patella. No acute fracture is seen. There are expected postoperative changes around the knee including skin clips, a rodríguez rgical drain, soft tissue edema, and subcutaneous gas. IMPRESSION: Expected postoperative changes status post left knee arthroplasty. No acute fracture is s een. ACT 112: Negative or not required by law. Electronically signed by: Maximiliano Villa M.D. 03/01/2023 2:17 PM
--- NOTE | 2023-03-01 14:54 | Anesthesiology Progress Note ---
Date of Service March 01, 2023 Anesthesia Post Procedure Vital Signs Vital Signs: Temp Pulse Pulse Resp BP Pulse Ox O2 Del Method 03/01/23 14:40 48 L 12 139/64 97 Room Air 03/01/23 14:30 54 L 12 120/71 95 Room Air 03/01/23 14:20 52 L 19 128/62 99 Room Air 03/01/23 14:10 36.4 C L 52 L 12 127/58 L 94 Room Air 03/01/23 13:40 38 L 14 139/74 97 Oxymask 03/01/23 13:30 49 L 12 142/70 H 98 Oxymask 03/01/23 13:20 53 L 14 125/68 99 Oxymask 03/01/23 14:00 45 L 17 126/67 96 Room Air 03/01/23 13:50 37 L 13 134/68 99 Room Air 03/01/23 13:12 36.5 C 61 18 119/68 98 Oxymask 03/01/23 08:18 36.5 C 62 21 174/112 H 96 Room Air O2 Flow Rate 03/01/23 14:40 03/01/23 14:30 03/01/23 14:20 03/01/23 14:10 03/01/23 13:40 2 03/01/23 13:30 2 03/01/23 13:20 4 03/01/23 14:00 03/01/23 13:50 03/01/23 13:12 6 03/01/23 08:18 Pain Intensity Left Knee: Pain Intensity: 8 Transfer of Care Handoff Completed per policy Notes Mental Status: alert / awake / arousable and participated in evaluation Nausea / Vomiting: adequately controlled Pain: adequately controlled Airway Patency, RR, SpO2: stable & adequate BP & HR: stable & adequate Hydration State: stable & adequate Neuraxial Anesthesia: was administered and sensory block is resolving Anesthetic Complications: no major complications apparent and Pt Satisfied with anesthetic care
[2023-03-01] MEDS ORDERED: METOCLOPRAMIDE HCL INJ 5 MG/ML 2 ML VIAL IV PRN (16:14)
[2023-03-01] MEDS ORDERED: HYDROmorphone INJ 0.5 MG/0.5 ML SYR IV PRN (16:14)
[2023-03-01] MEDS ORDERED: SODIUM CHLORIDE 0.9% 1,000 ML IV SCH (16:14)
[2023-03-01] MEDS ORDERED: NALOXONE HCL 0.4 MG/1 ML VIAL/CARP IV PRN (16:14)
[2023-03-01] MEDS ORDERED: MAGNESIUM HYDROXIDE SUSP 30 ML UDC PO PRN (16:14)
[2023-03-01] MEDS ORDERED: bisacodyL 10 MG SUPP PR PRN (16:14)
--- NOTE | 2023-03-01 17:50 | Consultation ---
Date of Consultation March 01, 2023 Assessment & Plan (1) Status post total left knee replacement: (2) Primary osteoarthritis of left knee: Post op day# 0 S/P Left TKA by Dr Haji EB#5ml -pain management per ortho -wound management per ortho -PT/OT as appropriate -DVT prophylaxis per ortho -incentive spirometry -monitor H&H for acute blood loss anemia, pre-op Hgb: 13.8 (3) HLD (hyperlipidemia): -Not on medication (4) Obesity: BMI: 34 -Lifestyle modifications recommended DVT Prophylaxis -Aspirin 81mg BID per ortho Disposition per primary service Follows with Dr Arabella Sánchez for routine care Pt was seen and care coordinated with Dr Giles. See addendum Thank you for this consultation. We will follow the patient with you during their hospital stay. You can reach a member of the [facility] Medicineist Team 05/12 via [facility] Supervising Physician Co-Signing Physician Notes I have seen and discussed the case with the collaborating PA-C. I agree with the above H&P. I have reviewed and confirmed the patients medical history, the findings on physical examination, and the patients diagnosis and treatment plan with Schmclaren thumb regionst PA-C and agree with the information documented. In short, Ms Marcano is a 62 year old woman is minimal comorbidities for whom medicine comagament was consulted. Labs and vital signs stable. Rst of plan as above. History of Present Illness Requesting Physician: Dr Haji Reason for Consultation: Post op medical management Attending Physician: Isaac Haji MD History of Present Illness Patient is 62 y/o F with PMH HLD, obesity seen in medical consultation s/p left TKA today by Dr. Haji. Postop patient reports is doing well. Still having left lower extremity numbness and is without pain. Denies nausea, vomiting. Ate dinner tray without difficulty. Last BM yesterday. Denies fever/chills, diaphoresis, N/V/D/C, CASTRO, dizziness, syncope, CP, SOB, palpitations, cough, rhinorrhea, abdominal pain, extremity edema, rashes, urinary symptoms. Allergies Allergy/AdvReac Type Severity Reaction Status Date / Time morphine AdvReac Intermediate Pruritus, Verified 03/01/23 08:17 agitation Home Medications Medication Instructions Recorded Confirmed Type meloxicam 15 mg tablet 15 mg PO QAM 02/03/23 03/01/23 History acetaminophen 500 mg tablet 1,000 mg PO Q8 #60 tabs 03/02/23 Rx (Tylenol Extra Strength) aspirin 81 mg tablet,delayed 81 mg PO BID #60 tabs 03/02/23 Rx release celecoxib 200 mg capsule (Celebrex) 200 mg PO BID #60 caps 03/02/23 Rx oxycodone 5 mg tablet 5 - 10 mg PO .Q4h-6h PRN pain #30 03/02/23 Rx tabs Patient History Medical History (Updated 03/01/23 @ 20:10 by Vianca Owens PA-C) Arthritis HLD (hyperlipidemia) Obesity Rheumatic fever As , no known residual issues Surgical History (Updated 03/01/23 @ 20:10 by Vianca Owens PA-C) History of colonoscopy History of dilatation and curettage History of hysterectomy + USO History of repair of rotator cuff left History of total knee replacement Right TKA (10/31/19): SAB at L3/4 x1 attempt + PNB at [facility] + second repair Hx of oral surgery has wire to bottom teeth to keep from shifting Nausea and vomiting after administration of anesthetic agent [place] teeth extracted Family History Mother Family hx of colon cancer Father Family hx of colon cancer Grandmother (Paternal) Family hx of colon cancer Family/Other Family hx of colon cancer Sister No problems noted. Social History Smoking Status: Never smoker Second Hand Exposure: No; Do You Dip or Chew Tobacco: No; Tobacco Cessation Education Requested by Patient: No Hx Alcohol Use: No Hx Substance Use: No Preferred Language: [place] Communication Ability: Effective Appraisal Analyst Required: No Beliefs That Will Affect Care: None marital status: Current Living Situation: Spouse Other Information That Helps Us Care for You: No Feels Safe at Home: Yes Safety Concerns: Feels Safe At This Time Assistive Devices: Contacts Assistive Devices Comment: contact to right eye, wire present to bottom teeth Review of Systems Review of Systems: All systems reviewed & are unremarkable except as noted in HPI & below Physical Exam Physical Exam: General: no distress, overweight Head: normocephalic, atraumatic Eyes: conjunctiva non-injected, anicteric ENT: normal inspection external ears, nose, mucous membranes moist Neck: supple, trachea midline Lungs: clear, no respiratory distress, no wheezing/rhonchi/rales CV: RRR, no murmur, no pretibial edema Abd: normal BS, soft, non-tender Ext: no calf tenderness, LLE: +surgical dressing and GAURANG wrap in place, +GRETCHEN drain with serosanguineous drainage. Limited range of motion of toes, unable to dorsiflex plantarflex at this time. Distal pulses intact Neuro: A&O x 3, no focal deficits noted, normal affect Skin: warm, dry Results & Data Vital Signs (Past 12 Hours) Vital Signs Temp Pulse Pulse Resp BP BP Pulse Ox 03/01/23 17:00 36.5 C 73 18 125/78 96 03/01/23 16:30 36.5 C 55 L 18 126/79 98 03/01/23 16:00 36.5 C 45 L 16 127/79 98 03/01/23 15:40 54 L 16 140/74 98 03/01/23 15:25 55 L 13 141/81 H 94 03/01/23 15:10 57 L 22 139/74 95 03/01/23 15:00 36.4 C L 52 L 17 143/62 H 97 03/01/23 14:50 54 L 19 149/77 H 96 03/01/23 14:40 48 L 12 139/64 97 03/01/23 14:30 54 L 12 120/71 95 03/01/23 14:20 52 L 19 128/62 99 03/01/23 14:10 36.4 C L 52 L 12 127/58 L 94 03/01/23 13:40 38 L 14 139/74 97 03/01/23 13:30 49 L 12 142/70 H 98 03/01/23 13:20 53 L 14 125/68 99 03/01/23 14:00 45 L 17 126/67 96 03/01/23 13:50 37 L 13 134/68 99 03/01/23 13:12 36.5 C 61 18 119/68 98 03/01/23 08:18 36.5 C 62 21 174/112 H 96 O2 Del Method O2 Flow Rate 03/01/23 17:00 Room Air 10/18/23 16:30 Room Air 03/01/23 16:00 Room Air 03/01/23 15:40 Room Air 03/01/23 15:25 Room Air 03/01/23 15:10 Room Air 03/01/23 15:00 Room Air 03/01/23 14:50 Room Air 03/01/23 14:40 Room Air 03/01/23 14:30 Room Air 03/01/23 14:20 Room Air 03/01/23 14:10 Room Air 03/01/23 13:40 Oxymask 2 03/01/23 13:30 Oxymask 2 03/01/23 13:20 Oxymask 4 03/01/23 14:00 Room Air 03/01/23 13:50 Room Air 03/01/23 13:12 Oxymask 6 03/01/23 08:18 Room Air
[2023-03-01] MEDS: ceFAZolin 2000MG 2,000 MG/15 ML SYR IV SCH (19:45)
[2023-03-01] MEDS: SENNA 8.6 MG TAB PO SCH (19:48)
[2023-03-01] MEDS: DOCUSATE SODIUM 100 MG CAP PO SCH (19:48)
[2023-03-01] MEDS: oxyCODONE HCL IR 5 MG TAB (IMMEDIATE RELEASE) PO PRN (19:50)
[2023-03-01] MEDS: CeleBREX 200 MG CAP PO SCH (20:01)
[2023-03-01] MEDS: ACETAMINOPHEN 500 MG TAB PO SCH (20:01)
[2023-03-01] MEDS: ASPIRIN 81 MG ECTAB PO SCH (20:01)
[2023-03-02] MEDS: oxyCODONE HCL IR 5 MG TAB (IMMEDIATE RELEASE) PO PRN ×5 (01:35→23:27)
[2023-03-02] MEDS: ceFAZolin 2000MG 2,000 MG/15 ML SYR IV SCH (04:09)
[2023-03-02] MEDS: ACETAMINOPHEN 500 MG TAB PO SCH ×3 (05:54→19:38)
[2023-03-02 07:25] LABS: Hematocrit (blood only) 35.8 % (37.0-47.0); Mean Corpuscular Hemoglobin 30.5 pg (25.0-34.0); Mean Corpuscular Hgb Conc 33.5 g/dL (32.0-36.0); Mean Corpuscular Volume 90.9 fL (80.0-100.0); Mean Platelet Volume 10.7 fL (9.4-12.4); Platelet Count 271 K/uL (130-400); RDW Coefficient of Variation 12.9 % (11.5-14.5); RDW Standard Deviation 43.1 fL (36.4-46.3); Red Blood Count 3.94 M/uL (4.20-5.40); White Blood Count 14.45 K/ul (4.8-10.8)
[2023-03-02 07:26] LABS: BUN Creatinine Ratio 22.8 (10-20); Calcium 8.8 mg/dl (8.6-10.3); Creatinine Clr Calc Pharmacy 86.8 ml/min; Est GFR (African American) 91.7 ml/min; Est GFR (Non-African American) 79.1 ml/min
[2023-03-02] MEDS: DOCUSATE SODIUM 100 MG CAP PO SCH ×2 (07:26→19:37)
[2023-03-02] MEDS: ASPIRIN 81 MG ECTAB PO SCH ×2 (08:15→19:38)
[2023-03-02] MEDS: MULTIVITAMIN TAB PO SCH (08:16)
[2023-03-02] MEDS: CeleBREX 200 MG CAP PO SCH ×2 (08:16→19:38)
--- NOTE | 2023-03-02 08:18 | Orthopedic Progress Note ---
Date of Service March 02, 2023 Assessment & Plan (1) Primary osteoarthritis of left knee: Plan: Postop day #1 left total knee arthroplasty -PT/OT -Pain management as written -DVT prophylaxis: SCDs, teds, aspirin 81 mg twice daily -A.m. labs: Hemoglobin 12 from 13.8 preop. Acute blood loss anemia due to surgical loss versus dilutional. Mild leukocytosis likely reactive due to surgical stress versus perioperative steroids. Patient is asymptomatic. -Discharge planning: Plan on discharge home with plans on attending outpatient therapy. We will monitor Hemovac output throughout the day. Likely discharge home tomorrow morning. Admission and Anticipated Discharge Date Admission Date: March 01, 2023 Supervising Physician Co-Signing Physician Notes Patient seen and examined. Agree with EHSAN Weston's note as above. She reports that around 1:00 this afternoon she had an episode of nausea, dizziness, and vertigo. Slightly improved now after medication. She has had a fair bit of output from Hemovac today, but vitals are stable and H&H still looks good; new H&H currently pending. Will plan to observe overnight. Subjective Patient is postop day #1 left total knee. She is feeling well overall. Is having increasing pain in her knee. She is concerned about the amount of drainage she is having during Hemovac. Reassured patient that this can be normal at this stage. No other complaints. Denies chest pain, shortness of breath, nausea/vomiting/diarrhea, headaches or dizziness Review of Systems Review of Systems: All systems reviewed & are unremarkable except as noted in Subjective Physical Exam Physical Exam: Left knee: Dressing is clean, dry, intact. Toes are mobile with good dorsiflexion. No calf tenderness. Patient is able to do straight leg raise. Distally neurovascular status and sensation is grossly intact. Hemovac output 150cc over the last shift with. Results & Data Vital Signs (Past 12 Hours) Vital Signs Temp Pulse Resp BP Pulse Ox O2 Del Method 03/02/23 07:16 36.5 C 65 18 125/72 94 Room Air 03/02/23 03:32 36.4 C L 53 L 18 128/74 94 Room Air 03/01/23 23:00 36.4 C L 56 L 18 131/76 94 Room Air
--- NOTE | 2023-03-02 09:01 | Hospitalist Progress Note ---
Date of Service March 02, 2023 Assessment & Plan (1) Status post total left knee replacement: (2) Primary osteoarthritis of left knee: Plan: Post op day# 1 S/P Left TKA by Dr Adithya MONSALVE#5ml -pain management per ortho -wound management per ortho -PT/OT as appropriate -DVT prophylaxis per ortho -incentive spirometry -monitor H&H for acute blood loss anemia, pre-op Hgb: 13.8, dropped during the day to 10.7 after her vasovagal episode Continue to monitor (3) HLD (hyperlipidemia): Plan: -Not on medication (4) Obesity: Plan: BMI: 34 -Lifestyle modifications recommended DVT Prophylaxis -Aspirin 81mg BID per ortho Disposition per primary service Follows with Dr Arabella Sánchez for routine care Thank you for this consultation. We will follow the patient with you during their hospital stay. You can reach a member of the [facility]/12 via [employer] Admission and Anticipated Discharge Date Admission Date: March 01, 2023 Subjective Pt seen multiple times during the day. In the AM was concerned that she was putting out a lot of blood into her drain. Later called to bedside as pt was dizzy after getting up, nauseous. [place] better after zofran and laying down. Review of Systems Review of Systems: All systems reviewed & are unremarkable except as noted in Subjective Physical Exam Physical Exam: General: Alert, oriented. No acute distress Skin: No noted rashes or bruises Psych: Appropriate mood and affect Neuro: No gross deficits HEENT: NC/AT Chest: Nontender to palpation. CV: RRR Resp: Breath sounds clear bilaterally, no increased effort of breathing. No crackles/rhonchi/rales. Abdomen: Soft, nontender, nondistended. Extremities: No edema in lower extremities bilaterally. Results & Data Results & Data Vital Signs (Past 12 Hours) Vital Signs Temp Pulse Resp BP Pulse Ox O2 Del Method 03/02/23 07:16 36.5 C 65 18 125/72 94 Room Air 03/02/23 03:32 36.4 C L 53 L 18 128/74 94 Room Air 03/01/23 23:00 36.4 C L 56 L 18 131/76 94 Room Air
[2023-03-02 15:04] LABS: Hematocrit (blood only) 32.4 % (37.0-47.0); Hemoglobin 10.7 g/dl (12.0-16.0)
[2023-03-02] MEDS: SENNA 8.6 MG TAB PO SCH (19:37)
[2023-03-02 22:00] LABS: Calcium 8.2 mg/dl (8.6-10.3); Creatinine Clr Calc Pharmacy 68.5 ml/min; Est GFR (Non-African American) 59.5 ml/min; Potassium 4.2 mmol/L (3.5-5.1)
[2023-03-03] MEDS: oxyCODONE HCL IR 5 MG TAB (IMMEDIATE RELEASE) PO PRN ×2 (05:26→10:14)
[2023-03-03] MEDS: ACETAMINOPHEN 500 MG TAB PO SCH (05:26)
[2023-03-03 06:47] LABS: Basophils # (auto) 0.06 K/uL (0.00-0.20); Basophils % (auto) 0.8 %; Eosinophils # (auto) 0.11 K/uL (0.00-0.50); Eosinophils % (auto) 1.4 %; Hematocrit (blood only) 32.5 % (37.0-47.0); Hemoglobin 10.5 g/dl (12.0-16.0); Immature Granulocytes # (auto) 0.03 K/uL (0.01-0.20); Immature Granulocytes % (auto) 0.4 %; Lymphocytes # (auto) 2.28 K/uL (1.20-3.40); Lymphocytes % (auto) 28.6 %; Mean Corpuscular Hemoglobin 30.5 pg (25.0-34.0); Mean Corpuscular Hgb Conc 32.3 g/dL (32.0-36.0); Mean Corpuscular Volume 94.5 fL (80.0-100.0); Mean Platelet Volume 10.2 fL (9.4-12.4); Monocytes # (auto) 0.75 K/uL (0.11-0.59); Monocytes % (auto) 9.4 %; Neutrophils # (auto) 4.73 K/uL (1.40-6.50); Neutrophils % (auto) 59.4 %; Platelet Count 191 K/uL (130-400); RDW Coefficient of Variation 13.5 % (11.5-14.5); RDW Standard Deviation 46.1 fL (36.4-46.3); Red Blood Count 3.44 M/uL (4.20-5.40); White Blood Count 7.96 K/ul (4.8-10.8)
--- NOTE | 2023-03-03 07:32 | Orthopedic Progress Note ---
Date of Service March 03, 2023 Assessment & Plan (1) Primary osteoarthritis of left knee: Plan: Postop day #2 left total knee arthroplasty -PT/OT -Pain management as written -DVT prophylaxis: SCDs, teds, aspirin 81 mg twice daily -A.m. labs: Hemoglobin stable at 10.5, was 10.7 yesterday pm and 12.5 in the am. Acute blood loss anemia due to surgical loss versus dilutional. Mild leukocytosis likely reactive due to surgical stress versus perioperative steroid s. Resolved. Patient is asymptomatic. -Discharge planning: Plan on discharge home with plans on attending outpatient therapy. Plan on d/c home today. Admission and Anticipated Discharge Date Admission Date: March 01, 2023 Subjective Patient is postop day #2 left total knee. She is doing well this morning. Mild amount of pain however it is well controlled. She did have an episode yesterday which she felt little dizzy and nauseated however the symptoms resolved. Hemoglobin was drawn yesterday afternoon which was 10.7 from 12 in the morning. Stable this morning at 10.5. She has no current complaints. Denies chest pain, shortness of breath, nausea/vomiting/diarrhea, headaches or dizziness. Review of Systems Review of Systems: All systems reviewed & are unremarkable except as noted in Subjective Physical Exam Physical Exam: Left knee: Dressing is clean, dry, intact. Toes are mobile with good dorsiflexion. No calf tenderness. Patient is able to do straight leg raise. Distally neurovascular status and sensation is grossly intact. Results & Data Vital Signs (Past 12 Hours) Vital Signs Temp Pulse Resp BP Pulse Ox O2 Del Method 03/02/23 20:15 Room Air 03/02/23 20:11 36.8 C 60 18 117/73 95 Room Air Laboratory Results Lab Results 03/02/23 03/02/23 03/02/23 Range/Units 06:25 06:25 14:25 WBC 14.45 H (4.8-10.8) K/ul RBC 3.94 L (4.20-5.40) M/uL Hgb 12.0 10.7 L (12.0-16.0) g/dl Hct 35.8 L 32.4 L (37.0-47.0) % MCV 90.9 (80.0-100.0) fL MCH 30.5 (25.0-34.0) pg MCHC 33.5 (32.0-36.0) g/dL RDW Std Deviation 43.1 (36.4-46.3) fL RDW Coeff of Jana 12.9 (11.5-14.5) % Plt Count 271 (130-400) K/uL MPV 10.7 (9.4-12.4) fL Immature Gran % (Auto) % Neut % (Auto) % Lymph % (Auto) % Bullock % (Auto) % Eos % (Auto) % Baso % (Auto) % Neut # (Auto) (1.40-6.50) K/uL Lymph # (Auto) (1.20-3.40) K/uL Bullock # (Auto) (0.11-0.59) K/uL Eos # (Auto) (0.00-0.50) K/uL Baso # (Auto) (0.00-0.20) K/uL Immature Gran # (Auto) (0.01-0.20) K/uL Sodium 139 (136-145) mmol/L Potassium 4.0 (3.5-5.1) mmol/L Chloride 107 (98-107) mmol/L Carbon Dioxide 26 (21-32) mmol/L Anion Gap 6 (3-11) BUN 18 (6-23) mg/dl Creatinine 0.79 (0.6-1.2) mg/dl Est Cr Clr Drug Dosing 86.8 ml/min Est GFR ( Amer) 91.7 ml/min Est GFR (Non-Af Amer) 79.1 ml/min BUN/Creatinine Ratio 22.8 H (10-20) Glucose 122 H (70-99(Fasting)) mg/dl Calcium 8.8 (8.6-10.3) mg/dl Ionized Calcium (1.12-1.32) mmol/L 03/02/23 03/03/23 03/03/23 Range/Units 21:26 06:19 06:19 WBC 7.96 (4.8-10.8) K/ul RBC 3.44 L (4.20-5.40) M/uL Hgb 10.5 L (12.0-16.0) g/dl Hct 32.5 L (37.0-47.0) % MCV 94.5 (80.0-100.0) fL MCH 30.5 (25.0-34.0) pg MCHC 32.3 (32.0-36.0) g/dL RDW Std Deviation 46.1 (36.4-46.3) fL RDW Coeff of Jana 13.5 (11.5-14.5) % Plt Count 191 (130-400) K/uL MPV 10.2 (9.4-12.4) fL Immature Gran % (Auto) 0.4 % Neut % (Auto) 59.4 % Lymph % (Auto) 28.6 % Bullock % (Auto) 9.4 % Eos % (Auto) 1.4 % Baso % (Auto) 0.8 % Neut # (Auto) 4.73 (1.40-6.50) K/uL Lymph # (Auto) 2.28 (1.20-3.40) K/uL Bullock # (Auto) 0.75 H (0.11-0.59) K/uL Eos # (Auto) 0.11 (0.00-0.50) K/uL Baso # (Auto) 0.06 (0.00-0.20) K/uL Immature Gran # (Auto) 0.03 (0.01-0.20) K/uL Sodium 140 (136-145) mmol/L Potassium 4.2 (3.5-5.1) mmol/L Chloride 108 H (98-107) mmol/L Carbon Dioxide 27 (21-32) mmol/L Anion Gap 5 (3-11) BUN 24 H (6-23) mg/dl Creatinine 1.00 (0.6-1.2) mg/dl Est Cr Clr Drug Dosing 68.5 ml/min Est GFR ( Amer) 69.0 ml/min Est GFR (Non-Af Amer) 59.5 ml/min BUN/Creatinine Ratio 24.0 H (10-20) Glucose 124 H (70-99(Fasting)) mg/dl Calcium 8.2 L (8.6-10.3) mg/dl Ionized Calcium 1.19 (1.12-1.32) mmol/L
[2023-03-03 07:53] LABS: Calcium 8.4 mg/dl (8.6-10.3); Potassium 4.2 mmol/L (3.5-5.1)
[2023-03-03 07:58] LABS: Creatinine Clr Calc Pharmacy 78.8 ml/min; Est GFR (African American) 81.6 ml/min; Est GFR (Non-African American) 70.4 ml/min; Phosphorus 3.7 mg/dl (2.5-4.9)
[2023-03-03] MEDS: ASPIRIN 81 MG ECTAB PO SCH (09:08)
[2023-03-03] MEDS: MULTIVITAMIN TAB PO SCH (09:09)
--- NOTE | 2023-03-03 09:14 | Discharge Summary ---
Date of Service March 03, 2023 Admission HPI Per Admitting Provider 62-year-old female with no significant past medical history who presents with ongoing left knee pain. Pain is interfering with her daily activities. She has failed conservative measures and would like to proceed with surgical intervention. Patient denies headaches, sweats, fevers, chills, double vision, blurred vision, cough, sore throat, dysphagia, chest pain, sob, wheezing, n/v/d/c, numbness, tingling, fatigue, urinary symptoms, mood disorders. ROS positive for left knee pain and stiffness. Admission Exam Per Admitting Provider A Constitutional: well developed and well nourished; no acute distress Eyes: PERRL, conjunctivae normal, anicteric sclerae ENMT: external ear and nose normal, oropharynx normal Neck: trachea midline, no thyromegaly Respiratory: normal respiratory effort, lungs clear to auscultation Cardiovascular: RRR, no murmur, no edema Musculoskeletal: Left knee: Valgus alignment. Tenderness lateral joint line. Mild swelling. Positive Kiana's. Stable to valgus and varus stress test. Range of motion 10 to 100 degrees. Skin: no rashes, warm and dry Neurologic: patellar DTR's 2+ bilat, sensation intact Psychiatric: A+Ox3, euthymic affect Principal Diagnosis Left knee osteoarthritis Discharge Exam Left knee: Dressing is clean, dry, intact. Toes are mobile with good dorsiflexion. No calf tenderness. Patient is able to do straight leg raise. Distally neurovascular status and sensation is grossly intact. Discharge Data Allergies Allergy/AdvReac Type Severity Reaction Status Date / Time morphine AdvReac Intermediate Pruritus, Verified 03/01/23 08:17 agitation Consultations 02/27/23 10:29 Consult Hospitalist Routine Procedures Performed Operation Date: 03/01/23 09:45 Actual Procedures p Left Total Knee Arthroplasty(Left) - Isaac Haji MD Ordered Studies 03/01/23 05:00 US - OR guided needle placemen Routine Hospital Course (1) Primary osteoarthritis of left knee: Postop day #2 left total knee arthroplasty -PT/OT -Pain management as written -DVT prophylaxis: SCDs, teds, aspirin 81 mg twice daily -A.m. labs: Hemoglobin stable at 10.5, was 10.7 yesterday pm and 12.5 in the am. Acute blood loss anemia due to surgical loss versus dilutional. Mild leukocytosis likely reactive due to surgical stress versus perioperative steroids. Resolved. Patient is asymptomatic. -Discharge planning: Plan on discharge home with plans on attending outpatient therapy. Plan on d/c home today. Postop day #1 left total knee arthroplasty -PT/OT -Pain management as written -DVT prophylaxis: SCDs, teds, aspirin 81 mg twice daily -A.m. labs: Hemoglobin 12 from 13.8 preop. Acute blood loss anemia due to surgical loss versus dilutional. Mild leukocytosis likely reactive due to surgical stress versus perioperative steroids. Patient is asymptomatic. -Discharge planning: Plan on discharge home with plans on attending outpatient therapy. We will monitor Hemovac output throughout the day. Likely discharge home tomorrow morning. Lab Results 03/02/23 03/02/23 03/02/23 Range/Units 06:25 06:25 14:25 WBC 14.45 H (4.8-10.8) K/ul RBC 3.94 L (4.20-5.40) M/uL Hgb 12.0 10.7 L (12.0-16.0) g/dl Hct 35.8 L 32.4 L (37.0-47.0) % MCV 90.9 (80.0-100.0) fL MCH 30.5 (25.0-34.0) pg MCHC 33.5 (32.0-36.0) g/dL RDW Std Deviation 43.1 (36.4-46.3) fL RDW Coeff of Jana 12.9 (11.5-14.5) % Plt Count 271 (130-400) K/uL MPV 10.7 (9.4-12.4) fL Immature Gran % (Auto) % Neut % (Auto) % Lymph % (Auto) % Trego % (Auto) % Eos % (Auto) % Baso % (Auto) % Neut # (Auto) (1.40-6.50) K/uL Lymph # (Auto) (1.20-3.40) K/uL Trego # (Auto) (0.11-0.59) K/uL Eos # (Auto) (0.00-0.50) K/uL Baso # (Auto) (0.00-0.20) K/uL Immature Gran # (Auto) (0.01-0.20) K/uL Sodium 139 (136-145) mmol/L Potassium 4.0 (3.5-5.1) mmol/L Chloride 107 (98-107) mmol/L Carbon Dioxide 26 (21-32) mmol/L Anion Gap 6 (3-11) BUN 18 (6-23) mg/dl Creatinine 0.79 (0.6-1.2) mg/dl Est Cr Clr Drug Dosing 86.8 ml/min Est GFR ( Amer) 91.7 ml/min Est GFR (Non-Af Amer) 79.1 ml/min BUN/Creatinine Ratio 22.8 H (10-20) Glucose 122 H (70-99(Fasting)) mg/dl Calcium 8.8 (8.6-10.3) mg/dl Ionized Calcium (1.12-1.32) mmol/L Phosphorus (2.5-4.9) mg/dl Magnesium (1.7-2.4) mg/dl 03/02/23 03/03/23 03/03/23 Range/Units 21:26 06:19 06:19 WBC 7.96 (4.8-10.8) K/ul RBC 3.44 L (4.20-5.40) M/uL Hgb 10.5 L (12.0-16.0) g/dl Hct 32.5 L (37.0-47.0) % MCV 94.5 (80.0-100.0) fL MCH 30.5 (25.0-34.0) pg MCHC 32.3 (32.0-36.0) g/dL RDW Std Deviation 46.1 (36.4-46.3) fL RDW Coeff of Jana 13.5 (11.5-14.5) % Plt Count 191 (130-400) K/uL MPV 10.2 (9.4-12.4) fL Immature Gran % (Auto) 0.4 % Neut % (Auto) 59.4 % Lymph % (Auto) 28.6 % Trego % (Auto) 9.4 % Eos % (Auto) 1.4 % Baso % (Auto) 0.8 % Neut # (Auto) 4.73 (1.40-6.50) K/uL Lymph # (Auto) 2.28 (1.20-3.40) K/uL Trego # (Auto) 0.75 H (0.11-0.59) K/uL Eos # (Auto) 0.11 (0.00-0.50) K/uL Baso # (Auto) 0.06 (0.00-0.20) K/uL Immature Gran # (Auto) 0.03 (0.01-0.20) K/uL Sodium 140 141 (136-145) mmol/L Potassium 4.2 4.2 (3.5-5.1) mmol/L Chloride 108 H 109 H (98-107) mmol/L Carbon Dioxide 27 28 (21-32) mmol/L Anion Gap 5 4 (3-11) BUN 24 H 20 (6-23) mg/dl Creatinine 1.00 0.87 (0.6-1.2) mg/dl Est Cr Clr Drug Dosing 68.5 78.8 ml/min Est GFR ( Amer) 69.0 81.6 ml/min Est GFR (Non-Af Amer) 59.5 70.4 ml/min BUN/Creatinine Ratio 24.0 H 23.0 H (10-20) Glucose 124 H 97 (70-99(Fasting)) mg/dl Calcium 8.2 L 8.4 L (8.6-10.3) mg/dl Ionized Calcium (1.12-1.32) mmol/L Phosphorus 3.7 (2.5-4.9) mg/dl Magnesium 2.0 (1.7-2.4) mg/dl 03/03/23 Range/Units 06:19 WBC (4.8-10.8) K/ul RBC (4.20-5.40) M/uL Hgb (12.0-16.0) g/dl Hct (37.0-47.0) % MCV (80.0-100.0) fL MCH (25.0-34.0) pg MCHC (32.0-36.0) g/dL RDW Std Deviation (36.4-46.3) fL RDW Coeff of Jana (11.5-14.5) % Plt Count (130-400) K/uL MPV (9.4-12.4) fL Immature Gran % (Auto) % Neut % (Auto) % Lymph % (Auto) % Trego % (Auto) % Eos % (Auto) % Baso % (Auto) % Neut # (Auto) (1.40-6.50) K/uL Lymph # (Auto) (1.20-3.40) K/uL Trego # (Auto) (0.11-0.59) K/uL Eos # (Auto) (0.00-0.50) K/uL Baso # (Auto) (0.00-0.20) K/uL Immature Gran # (Auto) (0.01-0.20) K/uL Sodium (136-145) mmol/L Potassium (3.5-5.1) mmol/L Chloride (98-107) mmol/L Carbon Dioxide (21-32) mmol/L Anion Gap (3-11) BUN (6-23) mg/dl Creatinine (0.6-1.2) mg/dl Est Cr Clr Drug Dosing ml/min Est GFR ( Amer) ml/min Est GFR (Non-Af Amer) ml/min BUN/Creatinine Ratio (10-20) Glucose (70-99(Fasting)) mg/dl Calcium (8.6-10.3) mg/dl Ionized Calcium 1.19 (1.12-1.32) mmol/L Phosphorus (2.5-4.9) mg/dl Magnesium (1.7-2.4) mg/dl Total Time Total Time Spent Total Time Spent (In Minutes): 20 Discharge Plan Discharge Items Patient Disposition: Home - Self-Care Reason For Visit: Left Knee Osteoarthritis Discharge Diagnosis: Left knee osteoarthritis Activity: Per Instructions section Non-emergency contact: Surgeon Call non-emergency contact if: you have any medication questions, your pain is not controlled, your pain is concerning for you, you have a fever, your temperature is above 101, your wound has increased redness and your wound has increased drainage Follow-up/Referrals: Arabella Jay DO [Primary Care Provider] - Diet: Regular Addtl Attending Provider Instructions: ACTIVITY RECOMMENDATIONS: SELF CARE INSTRUCTIONS AFTER TOTAL KNEE REPLACEMENT A. You may need to continue a physical therapy program after discharge from the hospital. There are several options available to you. Your doctor will assist you in selecting the best one for you. 1. An out-patient facility 2 to 3 times a week for therapy or home therapy. 2. Continue working on all exercises taught to you in the hospital. Your goals should be to increase bending of your knee to 90 degrees and beyond and to fully straighten your knee. B. You may progress at your own pace from walking with a walker or crutches to a cane; then to no assistive devices. C. Make walking a part of your daily routine. Be up as much as comfortable with rest periods throughout the day. Rest with leg elevation is very important. Use the ice wrap frequently for the first 3-4 weeks. D. There are no restrictions on activities. You may ride in a car, shop, participate in drawbench operator helper and all social activities. E. Wear the long elastic stockings (JOHN hose) 20 hours a day for 2 weeks after surgery. They can be removed several times a day for laundering and for a bath. F. You may shower, no tub baths until cleared by your doctor. SPECIAL CARE INSTRUCTIONS: VERY IMPORTANT TO READ AND REVIEW A. There are a few signs you need to watch for after you are home. Call [facility] if you notice any of the followin. Increased severe knee pain. Some pain is expected especially when you exercise. 2. Increased swelling in your leg or knee; pain or swelling of the calf muscle in either lower leg. 3. Any fluid drainage from the incision. 4. Shortness of breath or chest pain. B. Please call [facility] at if you have any concerns or questions about your operation or recovery. The doctor or his nurse will return your call promptly. C. You must take antibiotics before dental work, bladder, bowel or other surgery. Your doctor will provide you with a permanent care to carry describing this precaution. IMPORTANT: * REMEMBER TO TAKE ASPIRIN, 81 MG, TWICE DAILY FOR 4 WEEKS UNLESS OTHERWISE DIRECTED. THIS IS YOUR BLOOD THINNER. * HIGH RISK PATIENTS MAY BE PRESCRIBED A STRONGER BLOOD THINNER. THIS WILL BE PROVIDED AT DISCHARGE. * CALL IF INCREASED PAIN, REDNESS, DRAINAGE OR FEVER GREATER THAT 101. * WEAR JOHN HOSE 20 HOURS PER DAY FOR 2 WEEKS. There is a large suction dressing covering your incision. This will help pull any excess drainage from the wound and allow your incision to heal properly. You may shower with this if you can keep the unit outside of the shower. If any bleeding or leakage is noted please call your doctor's office. This will remain on your incision for 7 days and then should be removed. This can be done yourself or by the home nursing staff if applicable. The entire unit is disposable once removed. Once removed, keep incision clean and dry. If redness or drainage is noted, please call your surgeon. . IF INCISION IS LEAKING THROUGH DRESSING, CALL THE OFFICE . FOLLOW UP VISIT: If appointment is not already scheduled: Please call [facility] to make a follow-up appointment for 2 weeks after your surgery at . Stand-Alone Forms: My [facility], Smoking Cessation Medications and DC Order Prescriptions: New celecoxib [Celebrex] 200 mg Capsule 200 mg PO BID Qty: 60 0RF aspirin 81 mg Tablet,Delayed Release (Dr/Ec) 81 mg PO BID Qty: 60 0RF acetaminophen [Tylenol Extra Strength] 500 mg Tablet 1,000 mg PO Q8 Qty: 60 0RF oxycodone 5 mg Tablet 5 - 10 mg PO .Q4h-6h MDD 6 PRN (Reason: pain) Qty: 30 0RF Rx Instructions: Ongoing therapy, Dr. Haji supervised Discontinued meloxicam 15 mg Tablet 15 mg PO QAM Discharge Orders: Discharge Order (Routine); Ordered 03/03/23 Ordered By: Alvaro Weston Admission Data Admit Date/Time: 03/01/23 13:12 Attending Provider: Isaac Haji Admit Provider: Isaac Haji Primary Care Provider: Arabella Jay Other Providers: Leonidas Baker ; Marina Vega
[2023-03-03] MEDS: CeleBREX 200 MG CAP PO SCH (09:56)
[2023-03-03] MEDS: DOCUSATE SODIUM 100 MG CAP PO SCH (09:56)
--- NOTE | 2023-03-03 10:01 | Hospitalist Progress Note ---
Date of Service March 03, 2023 Assessment & Plan (1) Status post total left knee replacement: (2) Primary osteoarthritis of left knee: Plan: Post op day# 2 S/P Left TKA by Dr Haji on 03/01 EBL#5ml -pain management per ortho -wound management per ortho -PT/OT as appropriate -DVT prophylaxis per ortho -incentive spirometry -monitor H&H for acute blood loss anemia, pre-op Hgb: 13.8, dropped during the day to 10.7 after her vasovagal episode and was stable on day of discharge at 10.5 close outpt monitoring recommended. (3) HLD (hyperlipidemia): Plan: -Not on medication (4) Obesity: Plan: BMI: 34 -Lifestyle modifications recommended DVT Prophylaxis -Aspirin 81mg BID per ortho Disposition per primary service Follows with Dr Arabella Sánchez for routine care Thank you for this consultation. We will follow the patient with you during their hospital stay. You can reach a [facility] of [facility] via [employer] Admission and Anticipated Discharge Date Admission Date: March 01, 2023 Subjective Pt seen while getting ready to be discharged. Denied acute concerns, stated that the dizziness from the day prior had resolved. Review of Systems Review of Systems: All systems reviewed & are unremarkable except as noted in Subjective Physical Exam Physical Exam: General: Alert, oriented. No acute distress Skin: No noted rashes or bruises Psych: Appropriate mood and affect Neuro: No gross deficits HEENT: NC/AT Chest: Nontender to palpation. CV: RRR Resp: Breath sounds clear bilaterally, no increased effort of breathing. No crackles/rhonchi/rales. Abdomen: Soft, nontender, nondistended. Extremities: No edema in lower extremities bilaterally. Results & Data Results & Data Vital Signs (Past 12 Hours) Vital Signs Temp Pulse Resp BP Pulse Ox O2 Del Method 03/03/23 08:01 36.5 C 58 L 18 138/80 94 Room Air
== END 2023-03-03 11:04 | disposition home or self-care (01) ==
LOC: 3E 07:59 → ASU 07:59
DX: R00.1 Bradycardia, unspecified; Z88.5 Allergy status to narcotic agent; Z01.812 Encounter for preprocedural laboratory examination; Z79.899 Other long term (current) drug therapy; Z01.818 Encounter for other preprocedural examination; M17.12 Unilateral primary osteoarthritis, left knee; Z01.810 Encounter for preprocedural cardiovascular examination